=== PATIENT | male | born 1945 | race Caucasian/White ===

== ENCOUNTER 2023-03-28 08:53 | Outpatient (CLI) | payer MEDICARE | END 2023-03-28 23:59 | disposition home or self-care (01) | LOC: RT 08:53 | PROVIDERS: ATTEND Internal Medicine Pulmonary Disease | DX: J84.9 Interstitial pulmonary disease, unspecified (principal); Z79.899 Other long term (current) drug therapy | CPT/HCPCS: 94618 ==